=== PATIENT | male | born 1955 ===

== ENCOUNTER 2023-04-15 16:16 | Inpatient (IN) | payer OTHER, SELFPAY ==
[2023-04-15 16:40] VITALS: BP 128/96; PULSE 102; RESP 16; TEMP 37.1; O2SAT 95
[2023-04-15 17:08] VITALS: BP 153/67; RESP 16
[2023-04-15 18:00] VITALS: RESP 16
--- NOTE | 2023-04-15 19:02 | PC.ADMIT ---
Alin arrived to the unit at 1630, he was on a four point restraint on the stretcher, per ambulance personnel Alin attempted to jump off the ambulance when ambulance was on the highway. Alin was not responding to conventional underwriter when questions were being asked. Alin appears internally preoccupied self dialoguing, started laughing inappropriately, smiling, nonsensical responses, food offered and accepted, appeared calmer. Alin is on a 12b, per assessment Alin has a history with the [facility] and was recently discharged from their psych unit, he was found walking on a corn field covered in his sown urine appeared disorganized, he reported that he had walked from [place] to [place] and reported SI.
--- NOTE | 2023-04-15 20:04 | HO.PM.IMCN ---
History of Present Illness Data of Consult Service Date: 04/15/23 Requesting physician: James Hughes Primary Care Provider: Unknown Physician HPI Reason for consult: medical H&P 67 year old male with history of schizoaffective disorder, heart murmur, and chronic venous stasis BLE admitted to psychiatry with consult placed for medical H&P. The patient denies any other chronic medical conditions but unclear how well his medical follow up has been. He does follow with the DC in [place]. He has no complaints at this time. No illicit drug use, cigarette smoking, or alcohol use. Review of Systems Review of Systems: General: No fevers, malaise, unintentional weight loss HEENT: No blurred vision, diplopia. No sore throat, nasal congestion, rhinorrhea, sinus pain, ear pain Cardiovascular: No chest pain, palpitations, or leg edema Respiratory: No shortness of breath, wheezing, cough GI: No abdominal pain, nausea, vomiting, diarrhea, constipation, melena, hematochezia : No dysuria, hematuria, increased urinary frequency, decreased urinary output MSK: No myalgia, back pain Neuro: No headaches, weakness, paresthesias Skin: No rashes or lesions PMFSH Medical History Chronic venous stasis dermatitis of both lower extremities Kidney stone Systolic ejection murmur Social History Household Members: Unknown / Unable to assess and Other Household Members Other:: Per assessment patient is homeless. Housing: Homeless Do you presently have visiting nurse or other home services: Yes (DC in [place]) Unable to assess alcohol history related to: Unknown Patient Tobacco Use Status: Tobacco use Unknown Use of substances other than those prescribed or required for medical reasons: Unknown Substance Use Type: Unknown Currently Displaying Signs/Symptoms of Drug Intoxication Withdrawal: No Any prior treatment program specific to substance use: No Advance Directives: No Advance Directives Information Provided: Yes Do you have thoughts of harming others: None Do you have a plan to hurt others: No Plan Recently lost weight without trying: Unsure Meds Allergies Allergy/AdvReac Type Severity Reaction Status Date / Time No Known Allergies Allergy Verified 04/15/23 16:26 Active Medications: Current Medications Acetaminophen (Acetaminophen 325 Mg Tablet) 650 mg PO Q6H PRN PRN Reason: Headache/Pain Mild Scale (1-3) Al Hydroxide/Mg Hydroxide (Magnesium Hydrox/Alum Hydrox 30 Ml Oral.Susp) 30 ml PO Q6H PRN PRN Reason: Heartburn/Nausea Divalproex Sodium (Divalproex Sodium Er 500 Mg Tab.Er.24h) 500 mg PO BEDTIME JAIME Haloperidol (Haloperidol 0.5 Mg Tablet) 2.5 mg PO BID JAIME Hydroxyzine HCl (Hydroxyzine Hcl 25 Mg Tablet) 25 mg PO Q6H PRN PRN Reason: Anxiety Magnesium Hydroxide (Milk Of Magnesia 30 Ml Oral.Susp) 30 ml PO DAILY PRN PRN Reason: Constipation Trazodone HCl (Trazodone Hcl 50 Mg Tablet) 50 mg PO BEDTIME MRX1 PRN PRN Reason: Insomnia Physical Exam Vital Signs and Narrative: Vital Signs: Last Vital Signs Temp 98.7 F 04/15/23 16:40 Pulse 102 H 04/15/23 16:40 Resp 16 04/15/23 17:08 BP 153/67 H 04/15/23 17:08 Pulse Ox 95 04/15/23 16:40 O2 Del Method Room Air 04/15/23 16:40 Constitutional - Awake and Alert, No apparent distress Eyes - PERRLA, EOMI Cardiovascular - S1S2, RRR, IV/ systolic ejection murmur, No edema Respiratory - Normal lung expansion, Normal respiratory effort, No respiratory distress, CTA bilaterally Gastrointestinal - NT / ND; +BS; No rebound or guarding Extremities - no calf tenderness bilaterally, no swelling Musculoskeletal - Normal inspection, normal ROM Skin - Warm/Dry. Chronic venous stasis changes BLE Neurological - Alert & oriented x3, CN II-XII in tact, 5/5 strength BUE and BLE Psychological - Appropriate affect Assessment and Plan (1) Routine medical exam: Status: Acute Plan 67 year old male with history of schizoaffective disorder, heart murmur, and chronic venous stasis BLE admitted to psychiatry with consult placed for medical H&P. #Schizoaffective disorder -plan per psychiatry #Heart murmur -systolic ejection murmur, probably aortic stenosis -states diagnosed 4 years ago -asymptomatic, outpt follow up Thank you for allowing me to participate in this consult. Signing off at this time. Please do not hesitate to call for further questions. Time Spent With Patient Time: Total time managing care of this patient today ____ minutes.
[2023-04-15] MEDS: HaloperidoL 0.5 MG TABLET 2.5 MG PO (20:21)
[2023-04-15 21:10] VITALS: BP 146/90; PULSE 78; RESP 20; TEMP 36.9; O2SAT 96
[2023-04-16] MEDS: traZODone HCL 50 MG TABLET PO ×2 (00:08→23:51)
[2023-04-16 06:00] VITALS: BP 177/97; PULSE 77; RESP 18; TEMP 36.3; O2SAT 96
[2023-04-16] MEDS: HaloperidoL 0.5 MG TABLET 2.5 MG PO ×2 (08:20→20:19)
[2023-04-16 08:26] LABS: Alanine Aminotransferase 12 U/L (0-40); Albumin Level 4.1 g/dL (3.5-5.0); Alkaline Phosphatase 71 U/L (39-117); Anion Gap 10 (12-20); Aspartate Amino Transferase 14 U/L (5-37); Bilirubin Total 0.6 mg/dL (0.0-1.0); Blood Urea Nitrogen 23 mg/dL (9-16); Calcium 9.6 mg/dL (8.4-10.2); Carbon Dioxide 28 mmol/L (22-29); Chloride 106 mmol/L (96-108); Cholesterol 172 mg/dL; Estimated Glomerular Filt Rate > 60; Glucose Fasting 95 mg/dL (60-99); HDL Cholesterol 68 mg/dL; LDL Cholesterol Calculated 91 mg/dl; Potassium 4.5 mmol/L (3.3-5.1); Sodium 139 mmol/L (135-145); Triglycerides 68 mg/dL
--- NOTE | 2023-04-16 13:13 | P.HPPS_ITS ---
HPI Date of Service: 04/16/23 Chief Complaint: Schizoaffective disorder Sources of Information: patient interviewed, chart reviewed and crisis/core team assessment reviewed HPI Subjective Notes: [place]azu[place] Warning and Section 12B Narrative: The patient is a 67-year-old male, better and who was recently discharged from the [facility] with a prior history of schizoaffective disorder bipolar type. The patient was brought to the emergency room another hospital since he was found in a corn field incoherent stating that he wanted to kill himself disheveled covered in urine refusing to answer any questions. He was rushed to the emergency room, medically treated but he got agitated and become nonsensical in needed to be chemically restrain with droperidol and Versed. According to the crisis assessment, the patient was known by the crisis team for prior assessment since he was found in the streets with a similar presentation, he is homeless, he used to live in [place] and came to [place] stating that he likes [place] people . He was discharged from [facility] since he refused all treatment and services from the [place] and wanted to go back to [place]. Apparently, he lost his bus ticket and he wanted to walk from [place] to [place]. Later, he was found by emergency services he was extremely disorganized dish eveled covered on urine. On assessment, the patient refused to interact with this prescriber, he was laughing nonsensical responding to internal stimuli and. He had been incontinent and refusing to wear briefs and he had been on one-to-one observation for safety. He is on a Section 12 be, unable to sign himself in the hospital. Past Psychiatric History: According to the crisis assessment, the patient carries a diagnosis of schizoaffective disorder bipolar type, treated on the [facility] and [place]. Medical Evaluation Reviewed: Yes [facility] Medical History Chronic venous stasis dermatitis of both lower extremities Kidney stone Systolic ejection murmur Family History: Unknown Social History: Homeless, we do not have collateral information at this moment Substance History: According to the crisis assessment he does not have history of substance abuse Trauma History: Unknown Diagnostics Vital Signs (24Hr): Vital Signs - 24 hr 04/15/23 16:40 04/15/23 17:08 04/15/23 18:00 Temperature 98.7 F Pulse Rate 102 H Respiratory Rate 16 16 16 Blood Pressure 128/96 H 153/67 H Pulse Oximetry 95 Oxygen Delivery Method Room Air 04/15/23 21:10 04/16/23 06:00 Temperature 98.4 F 97.4 F Pulse Rate 78 77 Respiratory Rate 20 18 Blood Pressure 146/90 H 177/97 H Pulse Oximetry 96 96 Oxygen Delivery Method Room Air Room Air Labs 04/16/23 07:53 Labs: Laboratory Results - last 48 hr 04/16/23 07:53 Sodium 139 Potassium 4.5 Chloride 106 Carbon Dioxide 28 Anion Gap 10 L BUN 23 H Creatinine 0.75 Estim Creat Clear Calc TNP Estimated GFR > 60 Fasting Glucose 95 Calcium 9.6 Total Bilirubin 0.6 AST 14 ALT 12 Alkaline Phosphatase 71 Total Protein 7.0 Albumin 4.1 Triglycerides 68 Cholesterol 172 LDL Cholesterol, Calc 91 HDL Cholesterol 68 Meds/Allergies Allergies Allergies Allergy/AdvReac Type Severity Reaction Status Date / Time No Known Allergies Allergy Verified 04/15/23 16:26 Mental Status Exam Mental Status Exam Patient Appearance: Disheveled, Inappropriate and Unkempt Patient Orientation: Person Level of Consciousness: Restless, Alert and Inappropriate Patient Behavior: Guarded and Posturing Mood Description: Labile Affect Description: Labile Patient Cognition Impaired: Yes Ability to Follow Directions: Poor Speech Pattern: Impoverished and Monotone Hallucinations: Auditory Delusions: Paranoid Ideation, Thought Insert/Delete and Ideas of Reference Perceptual Disturbances: Hallucinations Thought Process: Incoherent, Distracted and Slowed Thinking Thought Content: positive for Poverty of Content, positive for Thought Blocking and positive for Disorganized Judgement: Poor Assessment & Plan Assessment & Plan (1) Schizoaffective disorder: Status: Acute Code(s): F25.9 - Schizoaffective disorder, unspecified Plan The patient is an elderly male with a past history of schizoaffective disorder or with a prior history of being admitted at the [place] [facility] but discharge since he refused prior services, found in a [facility] cover the urine grossly disorganized stating that he wanted to go walking from here to [place] where he is from. He was found grossly disorganized, covered in urine, unable t o take care of himself. He was also previously agitated and needed to be chemically restrained in the emergency room with a different hospital. Plan 1. Gather collateral information. [facility] and get more information about him. 2. Continue Haldol as prescribed. 3. Continue Depakote. 4. Continue medical workout. 5. Continue one-to-one for safety since the patient is grossly disorganized Patient educated on: diagnosis and therapeutic strategies Informed Consent: does not understand Reason for continued inpatient stay Substantial Risk for: harm to self, harm to others, inability to function, rapid decompensation and med/psych decompensation Statement Statement: I have reviewed the history and physical and performed a pertinent examination on my patient. No changes have occurred unless specified. If the History and Physical was not performed prior to admission, the Hospitalist's service will be consulted for completing the admission physical. Time Spent With Patient Time: Total time managing care of this patient today __45__ minutes.
[2023-04-16 19:30] VITALS: BP 154/74; PULSE 86; RESP 18; TEMP 36.3; O2SAT 98
[2023-04-16] MEDS: hydrOXYzine HCL 25 MG TABLET PO (23:51)
[2023-04-17] MEDS: traZODone HCL 50 MG TABLET PO ×2 (01:36→20:10)
[2023-04-17 08:12] VITALS: BP 157/77; PULSE 84; RESP 20; TEMP 36.6; O2SAT 95
[2023-04-17] MEDS: HaloperidoL 0.5 MG TABLET 2.5 MG PO (08:23)
[2023-04-17] MEDS: hydrOXYzine HCL 25 MG TABLET PO ×2 (08:23→20:10)
[2023-04-17 14:59] VITALS: BMI 22.2
[2023-04-17] MEDS: HaloperidoL 5 MG TABLET 2.5 MG PO (20:11)
[2023-04-17] MEDS: HaloperidoL 5 MG TABLET PO (20:39)
--- NOTE | 2023-04-17 23:59 | HO.PSYCHPN ---
Subjective Subjective Date of Service: 04/17/23 Reason For Visit: Schizoaffective disorder Subjective Notes: Section 12B Interim History: Patient took some low-dose Haldol refusing Depakote. Patient was less agitated generally had been intrusive labile day and night previously intrusive with his roommate. Patient mostly isolative to his room pressured speech diagnosis of attention she will but relating essentially that he has a history of living on the streets he related that he had been diagnosed with schizophrenia and manic depression in the past Medication Compliance: Intermittent Mental Status Exam Mental Status Exam Patient Appearance: Disheveled, Inappropriate and Unkempt Patient Orientation: Person Level of Consciousness: Restless, Alert and Inappropriate Patient Behavior: Guarded and Posturing Mood Description: Labile Affect Description: Labile Patient Cognition Impaired: Yes Ability to Follow Directions: Poor Speech Pattern: Perseverating, Impoverished, Rambling and Pressured Hallucinations: Auditory Delusions: Paranoid Ideation, Thought Insert/Delete and Ideas of Reference Perceptual Disturbances: Hallucinations Thought Process: Incoherent, Distracted and Slowed Thinking Thought Content: positive for Poverty of Content, positive for Thought Blocking and positive for Disorganized Judgement: Poor Diagnostics Vital Signs (24Hr): Vital Signs - 24 hr 04/17/23 08:12 Temperature 97.8 F Pulse Rate 84 Respiratory Rate 20 Blood Pressure 157/77 H Pulse Oximetry 95 Oxygen Delivery Method Room Air BMI result Body Mass Index 22.2 Labs 04/16/23 07:53 Labs: Laboratory Results - last 48 hr 04/16/23 07:53 Sodium 139 Potassium 4.5 Chloride 106 Carbon Dioxide 28 Anion Gap 10 L BUN 23 H Creatinine 0.75 Estim Creat Clear Calc TNP Estimated GFR > 60 Fasting Glucose 95 Calcium 9.6 Total Bilirubin 0.6 AST 14 ALT 12 Alkaline Phosphatase 71 Total Protein 7.0 Albumin 4.1 Triglycerides 68 Cholesterol 172 LDL Cholesterol, Calc 91 HDL Cholesterol 68 Medications Medications Current Medications Acetaminophen (Acetaminophen 325 Mg Tablet) 650 mg PO Q6H PRN PRN Reason: Headache/Pain Mild Scale (1-3) Al Hydroxide/Mg Hydroxide (Magnesium Hydrox/Alum Hydrox 30 Ml Oral.Susp) 30 ml PO Q6H PRN PRN Reason: Heartburn/Nausea Divalproex Sodium (Divalproex Sodium Er 500 Mg Tab.Er.24h) 500 mg PO BEDTIME JAIME Last Admin: 06/09/23 20:17 Dose: Not Given Haloperidol (Haloperidol 5 Mg Tablet) 2.5 mg PO BID JAIME Last Admin: 04/17/23 20:11 Dose: 2.5 mg Hydroxyzine HCl (Hydroxyzine Hcl 25 Mg Tablet) 25 mg PO Q6H PRN PRN Reason: Anxiety Last Admin: 04/17/23 20:10 Dose: 25 mg Magnesium Hydroxide (Milk Of Magnesia 30 Ml Oral.Susp) 30 ml PO DAILY PRN PRN Reason: Constipation Trazodone HCl (Trazodone Hcl 50 Mg Tablet) 50 mg PO BEDTIME MRX1 PRN PRN Reason: Insomnia Last Admin: 04/17/23 20:10 Dose: 50 mg Allergies Allergies Allergy/AdvReac Type Severity Reaction Status Date / Time No Known Allergies Allergy Verified 04/15/23 16:26 Assessment & Plan Assessment & Plan (1) Schizoaffective disorder: Status: Acute Code(s): F25.9 - Schizoaffective disorder, unspecified Plan The patient is an elderly male with a past history of schizoaffective disorder or with a prior history of being admitted at the [place] [facility] but discharge since he refused prior services, found in a [facility] cover the urine grossly disorganized stating that he wanted to go walking from here to [place] where he is from. He was found grossly disorganized, covered in urine, unable to take care of himself. He was also previously agitated and needed to be chemically restrained in the emergency room with a different hospital. Plan 1. Gather collateral information. We will try to contact the [place] [facility] and get more information about him. 2. Continue Haldol as prescribed. 3. Continue Depakote. 4. Continue medical workout. 5. Continue one-to-one for safety since the patient is grossly disorganized 04/17/23 Cont haldol evaluate 12 b and need for tx order potential guardianship vs d/c outreach services . Informed Consent: further education needed Reason for continued inpatient stay Substantial Risk for: inability to function Time Spent With Patient Time: Total time managing care of this patient today ____ minutes.
[2023-04-18 09:21] VITALS: BP 160/105; PULSE 83; RESP 18; TEMP 37.1; O2SAT 96
[2023-04-18] MEDS: LORazepam 1 MG TABLET PO ×2 (09:50→21:50)
[2023-04-18] MEDS: HaloperidoL 1 MG TABLET 2 MG PO (09:50)
[2023-04-18] MEDS: Divalproex Sodium Sprinkles 125 MG CAP.DR.SPR 250 MG PO ×3 (09:50→18:32)
--- NOTE | 2023-04-18 17:19 | P.PNPSI_ITS ---
Subjective Subjective Date of Service: 04/18/23 Reason For Visit: Schizoaffective disorder Subjective Notes: Section 12B Interim History: Pt reports he worked for [employer]. He is disheveled, speech is disorganized and difficult to follow. He asks this mortgage loan underwriter if I am Lao or not. Pt reports he has been on haldol and agrees to take it. He refused depakote stating pills are too big- switched to sprinkles. Pt denies SI/HI. Intrusive to peers, which has aggravated others who have treatened to hurt him. He had episode of screaming in evening requiring haldol. Medication Compliance: Intermittent Side effects from medications: Yes (parkinsonism bilat arms.) Review of Systems Review of Systems General: No fevers, malaise, unintentional weight loss HEENT: No blurred vision, diplopia. No sore throat, nasal congestion, rhinorrhea, sinus pain, ear pain Cardiovascular: No chest pain, palpitations, or leg edema Respiratory: No shortness of breath, wheezing, cough GI: No abdominal pain, nausea, vomiting, diarrhea, constipation, melena, hemato chezia : No dysuria, hematuria, increased urinary frequency, decreased urinary output MSK: No myalgia, back pain Neuro: No headaches, weakness, paresthesias Skin: No rashes or lesions Yes Unobtainable due to mental status Mental Status Exam Mental Status Exam Patient Appearance: Disheveled, Inappropriate and Unkempt Patient Orientation: Person Level of Consciousness: Restless, Alert and Inappropriate Patient Behavior: Guarded and Posturing Mood Description: Labile Affect Description: Labile Patient Cognition Impaired: Yes Ability to Follow Directions: Poor Speech Pattern: Perseverating, Impoverished, Rambling and Pressured Diagnostics Vital Signs (24Hr): Vital Signs - 24 hr 04/18/23 09:21 Temperature 98.8 F Pulse Rate 83 Respiratory Rate 18 Blood Pressure 160/105 H Pulse Oximetry 96 Oxygen Delivery Method Room Air BMI result Body Mass Index 22.2 Labs 04/16/23 07:53 Medications Medications Current Medications Acetaminophen (Acetaminophen 325 Mg Tablet) 650 mg PO Q6H PRN PRN Reason: Headache/Pain Mild Scale (1-3) Al Hydroxide/Mg Hydroxide (Magnesium Hydrox/Alum Hydrox 30 Ml Oral.Susp) 30 ml PO Q6H PRN PRN Reason: Heartburn/Nausea Divalproex Sodium (Divalproex Sodium Sprinkles 125 Mg ) 250 mg PO TID JAIME Last Admin: 04/18/23 16:01 Dose: 250 mg Haloperidol (Haloperidol 5 Mg Tablet) 5 mg PO BEDTIME JAIME Haloperidol (Haloperidol 1 Mg Tablet) 2 mg PO DAILY JAIME Hydroxyzine HCl (Hydroxyzine Hcl 25 Mg Tablet) 25 mg PO Q6H PRN PRN Reason: Anxiety Last Admin: 04/17/23 20:10 Dose: 25 mg Lorazepam (Lorazepam 1 Mg Tablet) 1 mg PO Q6H PRN PRN Reason: agitation Last Admin: 04/18/23 09:50 Dose: 1 mg Magnesium Hydroxide (Milk Of Magnesia 30 Ml Oral.Susp) 30 ml PO DAILY PRN PRN Reason: Constipation Olanzapine (Olanzapine Odt 10 Mg Tab.Rapdis) 10 mg TRANSLINGU Q6H PRN PRN Reason: agitation Trazodone HCl (Trazodone Hcl 50 Mg Tablet) 50 mg PO BEDTIME MRX1 PRN PRN Reason: Insomnia Last Admin: 04/17/23 20:10 Dose: 50 mg Allergies Allergies Allergy/AdvReac Type Severity Reaction Status Date / Time No Known Allergies Allergy Verified 04/15/23 16:26 Assessment & Plan Assessment & Plan (1) Schizoaffective disorder: Status: Acute Code(s): F25.9 - Schizoaffective disorder, unspecified Plan The patient is an elderly male with a past history of schizoaffective disorder or with a prior history of being admitted at the [place] [facility] but discharge since he refused prior services, found in a [facility] cover the urine grossly disorganized stating that he wanted to go walking from here to [facility] here he is from. He was found grossly disorganized, covered in urine, unable to take care of himself. He was also previously agitated and needed to be chemically restrained in the emergency room with a different hospital. Plan 1. Gather collateral information. We will try to contact the [place] of [facility] and get more information about him. 2. Continue Haldol as prescribed. 3. Continue Depakote. 4. Continue medical workout. 5. Continue one-to-one for safety since the patient is grossly disorganized 04/17/23 Cont haldol evaluate 12 b and need for tx order potential guardianship vs d/c outreach services . 04/18 increase haldol to 2mg po daily and 5mg po qhs. increase depakote to 250mg po TID sprinkles. PRN olanzapine for agitation. cogentin 1mg po BID. Reason for continued inpatient stay Substantial Risk for: harm to others and inability to function Time Spent With Patient Time: Total time managing care of this patient today ____ minutes.
[2023-04-18] MEDS: HaloperidoL 5 MG TABLET PO (18:33)
[2023-04-18] MEDS: hydrOXYzine HCL 25 MG TABLET PO (21:50)
[2023-04-18] MEDS: traZODone HCL 50 MG TABLET PO (23:14)
[2023-04-18] MEDS: OLANZapine ODT 10 MG TAB.RAPDIS TRANSLINGU (23:14)
[2023-04-19 08:31] VITALS: BP 146/78; PULSE 82; RESP 18; TEMP 36.2; O2SAT 99
[2023-04-19] MEDS: HaloperidoL 1 MG TABLET 2 MG PO (09:11)
[2023-04-19] MEDS: Divalproex Sodium Sprinkles 125 MG CAP.DR.SPR 250 MG PO ×3 (09:11→21:10)
[2023-04-19] MEDS: Benztropine Mesylate 1 MG TABLET PO ×2 (09:11→21:10)
[2023-04-19 18:00] VITALS: BP 131/64; PULSE 77; RESP 16; TEMP 36.5; O2SAT 97
--- NOTE | 2023-04-19 18:20 | P.PNPSI_ITS ---
Subjective Subjective Date of Service: 04/19/23 Reason For Visit: Schizoaffective disorder Subjective Notes: Section 12B Interim History: Pt has taken medications as prescribed and has agreed to PRN when increasingly more agitated. Pt talks about war, his political involvement, speech is disorganized and difficult to follow. Pt asked to leave breakfast tray he was holding and he just let it drop on the floor. Laughing to himself, self dialoguing, intrusive to peers. Pt insists peer is his mother, asking such pt if she remembers him her son Peer explained she is not his mother to what pt responded that peer did not remember him due to her dementia. Review of Systems Review of Systems General: No fevers, malaise, unintentional weight loss HEENT: No blurred vision, diplopia. No sore throat, nasal congestion, rhinorrhea, sinus pain, ear pain Cardiovascular: No chest pain, palpitations, or leg edema Respiratory: No shortness of breath, wheezing, cough GI: No abdominal pain, nausea, vomiting, diarrhea, constipation, melena, hematochezia : No dysuria, hematuria, increased urinary frequency, decreased urinary output MSK: No myalgia, back pain Neuro: No headaches, weakness, paresthesias Skin: No rashes or lesions Yes Unobtainable due to mental status Mental Status Exam Mental Status Exam Patient Appearance: Disheveled, Inappropriate and Unkempt Patient Orientation: Person Level of Consciousness: Restless, Alert and Inappropriate Patient Behavior: Guarded and Posturing Mood Description: Labile Affect Description: Labile Patient Cognition Impaired: Yes Ability to Follow Directions: Poor Speech Pattern: Perseverating, Impoverished, Rambling and Pressured Diagnostics Vital Signs (24Hr): Vital Signs - 24 hr 04/19/23 08:31 Temperature 97.2 F Pulse Rate 82 Respiratory Rate 18 Blood Pressure 146/78 H Pulse Oximetry 99 Oxygen Delivery Method Room Air BMI result Body Mass Index 22.2 Labs 04/16/23 07:53 Medications Medications Current Medications Acetaminophen (Acetaminophen 325 Mg Tablet) 650 mg PO Q6H PRN PRN Reason: Headache/Pain Mild Scale (1-3) Al Hydroxide/Mg Hydroxide (Magnesium Hydrox/Alum Hydrox 30 Ml Oral.Susp) 30 ml PO Q6H PRN PRN Reason: Heartburn/Nausea Benztropine Mesylate (Benztropine Mesylate 1 Mg Tablet) 1 mg PO BID [facility] Last Admin: 04/19/23 09:11 Dose: 1 mg Divalproex Sodium (Divalproex Sodium Sprinkles 125 Mg ) 250 mg PO TID [facility] Last Admin: 04/19/23 14:20 Dose: 250 mg Haloperidol (Haloperidol 5 Mg Tablet) 5 mg PO BEDTIME [facility] Last Admin: 04/18/23 18:33 Dose: 5 mg Haloperidol (Haloperidol 1 Mg Tablet) 2 mg PO DAILY [facility] Last Admin: 04/19/23 09:11 Dose: 2 mg Hydroxyzine HCl (Hydroxyzine Hcl 25 Mg Tablet) 25 mg PO Q6H PRN PRN Reason: Anxiety Last Admin: 04/18/23 21:50 Dose: 25 mg Lorazepam (Lorazepam 1 Mg Tablet) 1 mg PO Q6H PRN PRN Reason: agitation Last Admin: 04/18/23 21:50 Dose: 1 mg Magnesium Hydroxide (Milk Of Magnesia 30 Ml Oral.Susp) 30 ml PO DAILY PRN PRN Reason: Constipation Olanzapine (Olanzapine Odt 10 Mg Tab.Rapdis) 10 mg TRANSLINGU Q6H PRN PRN Reason: agitation Last Admin: 04/18/23 23:14 Dose: 10 mg Trazodone HCl (Trazodone Hcl 50 Mg Tablet) 50 mg PO BEDTIME PRN PRN Reason: Insomnia Allergies Allergies Allergy/AdvReac Type Severity Reaction Status Date / Time No Known Allergies Allergy Verified 04/15/23 16:26 Assessment & Plan Assessment & Plan (1) Schizoaffective disorder: Status: Acute Code(s): F25.9 - Schizoaffective disorder, unspecified Plan The patient is an elderly male with a past history of schizoaffective disorder or with a prior history of being admitted at the [facility] but d ischarge since he refused prior services, found in a [facility] cover the urine grossly disorganized stating that he wanted to go walking from here to [place] where he is from. He was found grossly disorganized, covered in urine, unable to take care of himself. He was also previously agitated and needed to be chemically restrained in the emergency room with a different hospital. Plan 1. Gather collateral information. We will try to contact the [facility] of [facility] and get more information about him. 2. Continue Haldol as prescribed. 3. Continue Depakote. 4. Continue medical workout. 5. Continue one-to-one for safety since the patient is grossly disorganized 04/17/23 Cont haldol evaluate 12 b and need for tx order potential guardianship vs d/c outreach services . 04/18 increase haldol to 2mg po daily and 5mg po qhs. Increase depakote 250mg po TID. cogentin 1mg po bid olanzapine 10mg po q6h prn agitation 04/19 continue tx. Reason for continued inpatient stay Substantial Risk for: inability to function Time Spent With Patient Time: Total time managing care of this patient today ____ minutes.
[2023-04-19] MEDS: HaloperidoL 5 MG TABLET PO (21:10)
[2023-04-19] MEDS: hydrOXYzine HCL 25 MG TABLET PO (21:10)
[2023-04-19] MEDS: LORazepam 1 MG TABLET PO (23:53)
[2023-04-19] MEDS: traZODone HCL 50 MG TABLET PO (23:53)
[2023-04-19] MEDS: Acetaminophen 325 MG TABLET 650 MG PO (23:53)
[2023-04-20 07:50] VITALS: BP 153/75; PULSE 73; RESP 18; TEMP 35.9; O2SAT 97
[2023-04-20] MEDS: HaloperidoL 1 MG TABLET 2 MG PO (08:09)
[2023-04-20] MEDS: Benztropine Mesylate 1 MG TABLET PO ×2 (08:09→20:08)
[2023-04-20] MEDS: Divalproex Sodium Sprinkles 125 MG CAP.DR.SPR 250 MG PO ×3 (08:09→20:10)
[2023-04-20] MEDS: LORazepam 1 MG TABLET PO ×2 (08:10→20:09)
--- NOTE | 2023-04-20 10:38 | HO.PSYCHPN ---
Subjective Subjective Date of Service: 04/20/23 Reason For Visit: Schizoaffective disorder Subjective Notes: [place] Warning, Conditional Voluntary and 3 Day Interim History: The nursing staff staff reported the patient has been perseverative, inappropriate with female staff at times. The social service manager reported that he wrist fused to sinus CV or any documents. On interview the patient reported that he is doing much better that he is more alert and awake and he wants to go back to [place]. He denies side effects with the current medications he denies hallucinations or delusions. We discussed at length treatment options and he agreed to sinus CV and a 3 day notice since he wants to be discharged as soon as possible Mental Status Exam Mental Status Exam Patient Appearance: Appropriate Patient Orientation: Person and Situation Level of Consciousness: Awake and Appropriate Patient Behavior: Guarded and Passive Mood Description: Withdrawn Affect Description: Constricted Patient Cognition Impaired: Yes Ability to Follow Directions: Good Speech Pattern: Clear and Appropriate Hallucinations: None Delusions: Paranoid Ideation Thought Process: Distracted and Slowed Thinking Thought Content: positive for [place] and positive for Circumstantial Judgement: Fair Diagnostics Vital Signs (24Hr): Vital Signs - 24 hr 04/19/23 18:00 04/20/23 07:50 Temperature 97.7 F 96.7 F L Pulse Rate 77 73 Respiratory Rate 16 18 Blood Pressure 131/64 153/75 H Pulse Oximetry 97 97 Oxygen Delivery Method Room Air Room Air BMI result Body Mass Index 22.2 Labs 04/16/23 07:53 Medications Medications Current Medications Acetaminophen (Acetaminophen 325 Mg Tablet) 650 mg PO Q6H PRN PRN Reason: Headache/Pain Mild Scale (1-3) Last Admin: 04/19/23 23:53 Dose: 650 mg Al Hydroxide/Mg Hydroxide (Magnesium Hydrox/Alum Hydrox 30 Ml Oral.Susp) 30 ml PO Q6H PRN PRN Reason: Heartburn/Nausea Benztropine Mesylate (Benztropine Mesylate 1 Mg Tablet) 1 mg PO BID [facility] Last Admin: 04/20/23 08:09 Dose: 1 mg Divalproex Sodium (Divalproex Sodium Sprinkles 125 Mg ) 250 mg PO TID [facility] Last Admin: 04/20/23 08:09 Dose: 250 mg Haloperidol (Haloperidol 5 Mg Tablet) 5 mg PO BEDTIME [facility] Last Admin: 04/19/23 21:10 Dose: 5 mg Haloperidol (Haloperidol 1 Mg Tablet) 2 mg PO DAILY [facility] Last Admin: 04/20/23 08:09 Dose: 2 mg Hydroxyzine HCl (Hydroxyzine Hcl 25 Mg Tablet) 25 mg PO Q6H PRN PRN Reason: Anxiety Last Admin: 04/19/23 21:10 Dose: 25 mg Lorazepam (Lorazepam 1 Mg Tablet) 1 mg PO Q6H PRN PRN Reason: agitation Last Admin: 04/20/23 08:10 Dose: 1 mg Magnesium Hydroxide (Milk Of Magnesia 30 Ml Oral.Susp) 30 ml PO DAILY PRN PRN Reason: Constipation Olanzapine (Olanzapine Odt 10 Mg Tab.Rapdis) 10 mg TRANSLINGU Q6H PRN PRN Reason: agitation Last Admin: 04/18/23 23:14 Dose: 10 mg Trazodone HCl (Trazodone Hcl 50 Mg Tablet) 50 mg PO BEDTIME PRN PRN Reason: Insomnia Last Admin: 04/19/23 23:53 Dose: 50 mg Allergies Allergies Allergy/AdvReac Type Severity Reaction Status Date / Time No Known Allergies Allergy Verified 04/15/23 16:26 Assessment & Plan Assessment & Plan (1) Schizoaffective disorder: Status: Acute Code(s): F25.9 - Schizoaffective disorder, unspecified Plan The patient is an elderly male with a past history of schizoaffective disorder or with a prior history of being admitted at the [facility] but discharge since he refused prior services, found in a [facility] cover the urine grossly disorganized stating that he wanted to go walking from here to [place] where he is from. He was found grossly disorganized, covered in urine, unable to take care of himself. He was also previously agitated and needed to be chemically restrained in the emergency room with a different hospital. Plan 1. Gather collateral information. We will try to contact the [facility] and get more information about him. 2. Continue Haldol as prescribed a 2 mg p.o. q.a.m. and 5 mg p.o. q.h.s. 3. Continue Depakote. 4. Continue medical workout. 5. Continue one-to-one for safety since the patient is grossly disorganized 6. We will discuss possible discharge planning Reason for continued inpatient stay Substantial Risk for: inability to function, rapid decompensation and med/psych decompensation Time Spent With Patient Time: Total time managing care of this patient today __20__ minutes.
[2023-04-20 18:00] VITALS: BP 138/63; PULSE 72; RESP 18; TEMP 36.8; O2SAT 97
[2023-04-20] MEDS: HaloperidoL 5 MG TABLET PO (20:10)
[2023-04-20] MEDS: hydrOXYzine HCL 25 MG TABLET PO (20:11)
[2023-04-21] MEDS: traZODone HCL 50 MG TABLET PO (00:19)
[2023-04-21] MEDS: Acetaminophen 325 MG TABLET 650 MG PO (01:56)
[2023-04-21] MEDS: OLANZapine ODT 10 MG TAB.RAPDIS TRANSLINGU (01:58)
[2023-04-21 08:17] VITALS: BP 149/70; PULSE 58; RESP 16; TEMP 36.3; O2SAT 98
[2023-04-21] MEDS: Benztropine Mesylate 1 MG TABLET PO ×2 (08:36→20:24)
[2023-04-21] MEDS: HaloperidoL 1 MG TABLET 2 MG PO (08:36)
[2023-04-21] MEDS: Divalproex Sodium Sprinkles 125 MG CAP.DR.SPR 250 MG PO ×3 (08:36→20:24)
--- NOTE | 2023-04-21 10:25 | HO.PSYCHPN ---
Subjective Subjective Date of Service: 04/21/23 Reason For Visit: Schizoaffective disorder Subjective Notes: Conditional Voluntary and 3 Day Interim History: The nursing staff reported the patient had been pacing in the hallway, his inappropriate at times. He slept on the floor. The staff has noticed that he does not have any outburst torn and there is no evidence of aggressive behavior. The social work instructor has contact him and the patient so far has refused all services. He stated that he can fence by himself in the community. On interview, he reports that he is doing well, no side effects with medications. Mental Status Exam Mental Status Exam Patient Appearance: Well Grooomed and Appropriate Patient Orientation: Person and Situation Level of Consciousness: Awake and Appropriate Patient Behavior: Guarded and Passive Mood Description: Calm Affect Description: Constricted Patient Cognition Impaired: Yes Ability to Follow Directions: Good Speech Pattern: Clear Hallucinations: None Delusions: Ideas of Reference Thought Process: Distracted and Slowed Thinking Thought Content: positive for [place] and positive for [place] of Content Judgement: Fair Diagnostics Vital Signs (24Hr): Vital Signs - 24 hr 04/20/23 18:00 04/21/23 08:17 Temperature 98.3 F 97.4 F Pulse Rate 72 58 Respiratory Rate 18 16 Blood Pressure 138/63 149/70 H Pulse Oximetry 97 98 Oxygen Delivery Method Room Air Room Air BMI result Body Mass Index 22.2 Labs 04/16/23 07:53 Medications Medications Current Medications Acetaminophen (Acetaminophen 325 Mg Tablet) 650 mg PO Q6H PRN PRN Reason: Headache/Pain Mild Scale (1-3) Last Admin: 04/21/23 01:56 Dose: 650 mg Al Hydroxide/Mg Hydroxide (Magnesium Hydrox/Alum Hydrox 30 Ml Oral.Susp) 30 ml PO Q6H PRN PRN Reason: Heartburn/Nausea Benztropine Mesylate (Benztropine Mesylate 1 Mg Tablet) 1 mg PO BID [facility] Last Admin: 04/21/23 08:36 Dose: 1 mg Divalproex Sodium (Divalproex Sodium Sprinkles 125 Mg ) 250 mg PO TID [facility] Last Admin: 04/21/23 08:36 Dose: 250 mg Haloperidol (Haloperidol 5 Mg Tablet) 5 mg PO BEDTIME [facility] Last Admin: 04/20/23 20:10 Dose: 5 mg Haloperidol (Haloperidol 1 Mg Tablet) 2 mg PO DAILY [facility] Last Admin: 04/21/23 08:36 Dose: 2 mg Hydroxyzine HCl (Hydroxyzine Hcl 25 Mg Tablet) 25 mg PO Q6H PRN PRN Reason: Anxiety Last Admin: 04/20/23 20:11 Dose: 25 mg Lorazepam (Lorazepam 1 Mg Tablet) 1 mg PO Q6H PRN PRN Reason: agitation Last Admin: 04/20/23 20:09 Dose: 1 mg Magnesium Hydroxide (Milk Of Magnesia 30 Ml Oral.Susp) 30 ml PO DAILY PRN PRN Reason: Constipation Olanzapine (Olanzapine Odt 10 Mg Tab.Rapdis) 10 mg TRANSLINGU Q6H PRN PRN Reason: agitation Last Admin: 04/21/23 01:58 Dose: 10 mg Trazodone HCl (Trazodone Hcl 50 Mg Tablet) 50 mg PO BEDTIME PRN PRN Reason: Insomnia Last Admin: 04/21/23 00:19 Dose: 50 mg Allergies Allergies Allergy/AdvReac Type Severity Reaction Status Date / Time No Known Allergies Allergy Verified 04/15/23 16:26 Assessment & Plan Assessment & Plan (1) Schizoaffective disorder: Status: Acute Code(s): F25.9 - Schizoaffective disorder, unspecified Plan The patient is an elderly male with a past history of schizoaffective disorder or with a prior history of being admitted at the [facility] but discharge since he refused prior services, found in a [facility] cover the urine grossly disorganized stating that he wanted to go walking from here to [place] where he is from. He was found grossly disorganized, covered in urine, unable to take care of himself. He was also previously agitated and needed to be chemically restrained in the emergency room with a different hospital. Plan 1. Gather collateral information. We will try to contact the [place] [facility] [place] and get more information about him. 2. Continue Haldol as prescribed a 2 mg p.o. q.a.m. and 5 mg p.o. q.h.s. 3. Continue Depakote. 4. Continue medical workout. 5. Continue one-to-one for safety since the patient is grossly disorganized, later on it was discontinue. Currently the patient is more alert awake and goal oriented. 6. We will discuss possible discharge planning Reason for continued inpatient stay Substantial Risk for: inability to function, rapid decompensation and med/psych decompensation Time Spent With Patient Time: Total time managing care of this patient today __20__ minutes.
[2023-04-21 18:00] VITALS: BP 149/68; PULSE 76; RESP 18; TEMP 36.2; O2SAT 98
[2023-04-21] MEDS: HaloperidoL 5 MG TABLET PO (20:23)
[2023-04-22 08:42] VITALS: BP 152/72; PULSE 67; RESP 16; TEMP 36.3; O2SAT 99
[2023-04-22] MEDS: Benztropine Mesylate 1 MG TABLET PO ×2 (08:44→20:26)
[2023-04-22] MEDS: Divalproex Sodium Sprinkles 125 MG CAP.DR.SPR 250 MG PO ×3 (08:44→20:26)
[2023-04-22] MEDS: HaloperidoL 1 MG TABLET 2 MG PO (08:45)
--- NOTE | 2023-04-22 10:38 | HO.PSYCHPN ---
Subjective Subjective Date of Service: 04/22/23 Reason For Visit: Schizoaffective disorder Subjective Notes: Conditional Voluntary and 3 Day Interim History: The nursing staff reported the patient had been compliant with treatment, he has been pleasant, hyperverbal and several IN on at times but easily redirectable and safe in the unit. Yesterday he took a shower but he slept on the floor. He denies pain. Yesterday the geriatric social work professor met with the patient stated that he wants to go to [place]. He gave us permission to contact [facility] and confirmed that the patient had not been a threat to himself or others and he has refused all services. On interview the patient denies new symptoms he states that he is taking medications just because he likes us and he likes the place but he wants to be discharged tomorrow. There is no evidence of safety to self or others even though that he is chronically psychotic and non compliant. Mental Status Exam Mental Status Exam Patient Appearance: Appropriate Patient Orientation: Person and Situation Level of Consciousness: Awake and Appropriate Patient Behavior: Guarded and Passive Mood Description: Calm Affect Description: Constricted Patient Cognition Impaired: Yes Ability to Follow Directions: Good Speech Pattern: Clear Hallucinations: Auditory Delusions: Paranoid Ideation Thought Process: Illogical Thought Content: positive for [place] and positive for [place] Judgement: Fair Diagnostics Vital Signs (24Hr): Vital Signs - 24 hr 04/21/23 18:00 04/22/23 08:42 Temperature 97.2 F 97.3 F Pulse Rate 76 67 Respiratory Rate 18 16 Blood Pressure 149/68 H 152/72 H Pulse Oximetry 98 99 Oxygen Delivery Method Room Air Room Air BMI result Body Mass Index 22.2 Labs 04/16/23 07:53 Medications Medications Current Medications Acetaminophen (Acetaminophen 325 Mg Tablet) 650 mg PO Q6H PRN PRN Reason: Headache/Pain Mild Scale (1-3) Last Admin: 04/21/23 01:56 Dose: 650 mg Al Hydroxide/Mg Hydroxide (Magnesium Hydrox/Alum Hydrox 30 Ml Oral.Susp) 30 ml PO Q6H PRN PRN Reason: Heartburn/Nausea Benztropine Mesylate (Benztropine Mesylate 1 Mg Tablet) 1 mg PO BID [facility] Last Admin: 04/22/23 08:44 Dose: 1 mg Divalproex Sodium (Divalproex Sodium Sprinkles 125 Mg ) 250 mg PO TID [facility] Last Admin: 04/22/23 08:44 Dose: 250 mg Haloperidol (Haloperidol 5 Mg Tablet) 5 mg PO BEDTIME [facility] Last Admin: 04/21/23 20:23 Dose: 5 mg Haloperidol (Haloperidol 1 Mg Tablet) 2 mg PO DAILY [facility] Last Admin: 04/22/23 08:45 Dose: 2 mg Hydroxyzine HCl (Hydroxyzine Hcl 25 Mg Tablet) 25 mg PO Q6H PRN PRN Reason: Anxiety Last Admin: 04/20/23 20:11 Dose: 25 mg Lorazepam (Lorazepam 1 Mg Tablet) 1 mg PO Q6H PRN PRN Reason: agitation Last Admin: 04/20/23 20:09 Dose: 1 mg Magnesium Hydroxide (Milk Of Magnesia 30 Ml Oral.Susp) 30 ml PO DAILY PRN PRN Reason: Constipation Olanzapine (Olanzapine Odt 10 Mg Tab.Rapdis) 10 mg TRANSLINGU Q6H PRN PRN Reason: agitation Last Admin: 04/21/23 01:58 Dose: 10 mg Trazodone HCl (Trazodone Hcl 50 Mg Tablet) 50 mg PO BEDTIME PRN PRN Reason: Insomnia Last Admin: 04/21/23 00:19 Dose: 50 mg Allergies Allergies Allergy/AdvReac Type Severity Reaction Status Date / Time No Known Allergies Allergy Verified 04/15/23 16:26 Assessment & Plan Assessment & Plan (1) Schizoaffective disorder: Status: Acute Code(s): F25.9 - Schizoaffective disorder, unspecified Plan The patient is an elderly male with a past history of schizoaffective disorder or with a prior history of being admitted at the [facility] but discharge since he refused prior services, found in a [facility] cover the urine grossly disorganized stating that he wanted to go walking from here to [place] where he is from. He was found grossly disorganized, covered in urine, unable to take care of himself. He was also previously agitated and needed to be chemically restrained in the emergency room with a different hospital. Plan 1. Gather collateral information. We will try to contact the [facility] and get more information about him. 2. Continue Haldol as prescribed a 2 mg p.o. q.a.m. and 5 mg p.o. q.h.s. 3. Continue Depakote. 4. Continue medical workout. 5. Continue one-to-one for safety since the patient is grossly disorganized, later on it was discontinue. Currently the patient is more alert awake and goal oriented. 6. We will discuss possible discharge planning Reason for continued inpatient stay Substantial Risk for: inability to function, rapid decompensation and med/psych decompensation Time Spent With Patient Time: Total time managing care of this patient today ___20_ minutes.
[2023-04-22 18:00] VITALS: BP 153/65; PULSE 68; RESP 18; TEMP 36.2; O2SAT 98
[2023-04-22] MEDS: HaloperidoL 5 MG TABLET PO (20:26)
[2023-04-23 08:23] VITALS: BP 164/77; PULSE 70; RESP 18; TEMP 36; O2SAT 99
[2023-04-23] MEDS: HaloperidoL 1 MG TABLET 2 MG PO (08:42)
[2023-04-23] MEDS: Divalproex Sodium Sprinkles 125 MG CAP.DR.SPR 250 MG PO (08:43)
[2023-04-23] MEDS: Benztropine Mesylate 1 MG TABLET PO (09:15)
--- NOTE | 2023-04-23 10:31 | P.DS_ITS ---
DS: Providers Provider Date of Service: 04/23/23 Date of admission: 04/15/23 16:16 Date of discharge: 04/23/23 Primary care physician: Unknown Physician Consults: 04/15/23 16:26 Consult to Hospitalist Routine Comment: Consulting Provider: Hospitalist Reason For Exam: Direct admission DS: Diagnosis Discharge Diagnosis (1) Schizoaffective disorder: Status: Acute Mental Status Exam Mental Status Exam Patient Appearance: Well Grooomed and Appropriate Patient Orientation: Person and Situation Level of Consciousness: Awake and Appropriate Patient Behavior: Guarded and Passive Mood Description: Withdrawn Affect Description: Constricted Patient Cognition Impaired: Yes Ability to Follow Directions: Good Speech Pattern: Clear Hallucinations: None Delusions: Ideas of Reference Thought Process: Distracted and Evasive Thought Content: positive for [place] Judgement: Fair DS: Summary Hospital Course Hospital Course: The patient was admitted from another emergency room since he was found in the community grossly psychotic. He was recently discharged from another facility, the [facility] in [facility]. He was chemically restrain an emergency room and transferring to this facility for psychiatric stabilization. The patient carries a diagnosis of schizophrenia and he had being treated before at the [facility]. Please see the [facility] admission note for further details. On admission, we restarted him on Haldol and Depakote as per medication reconciliation. The patient initially refused to sign any conditional voluntary or paperwork but later on his sinus CV and later on a 3 day notice since he wanted to be discharged. While he was in the unit, the patient was compliant with treatment, he was pleasant cooperative, delusional and disorganized at times but easily redirectable with no evidence of violence or safety concerns. We had a long meeting with him with the child protective services social worker and apparently the patient reported he has been chronically homeless and he likes to be in the community, he is also chronically noncompliant and he wants to go back to [facility] were he has more support. Since there were no safety concerns discharge planning was discussed. Time spent discussing smoking cessation with patient: 3 to 10 minutes Status at Discharge Functional status at discharge: independent ambulation Overall status at discharge: patient is back to baseline Time Spent with Patient Time attestation: Total time managing care of this patient today _30___ minutes. Time spent: Less than 30 minutes Discharge Plan Discharge Anticipated Discharge Date/Time: 04/23/23 11:00 Patient Disposition: Home, Self-Care Discharge Diagnosis: Schizoaffective disorder Referrals: Physician,Unknown J [Primary Care Provider] - 1 Week Discharge Medications: New haloperidol 5 mg Tablet 5 mg PO BEDTIME 30 Days Qty: 30 0RF trazodone 50 mg Tablet 50 mg PO BEDTIME PRN (Reason: Insomnia) 30 Days Qty: 30 0RF haloperidol 1 mg Tablet 2 mg PO DAILY 30 Days Qty: 60 0RF benztropine 1 mg Tablet 1 mg PO BID 30 Days Qty: 60 0RF divalproex 125 mg Capsule, Delayed Rel Sprinkle 250 mg PO TID 30 Days Qty: 180 0RF Discharge Orders: Discharge Order (Routine); Ordered 04/23/23 Ordered By: James Hughes Diet: Advance to usual diet Activity on Discharge: As tolerated Stand Alone Forms: Patient Portal Discharge page Care Plan Goals: Care plan goals achieved in this admission Health Concerns: Continue care with outpatient provider Plan of Treatment: Continue care with outpatient provider Assessment: Elderly male with schizoaffective disorder chronically homeless admitted for disorganized behavior, stabilized very fast and wants to continue treatment in [place]. No safety concerns at the moment of discharge
== END 2023-04-23 12:15 | disposition home or self-care (01) | DRG 750 ==
PROVIDERS: Admitting Provider Psychiatry & Neurology Psychiatry; Visit Provider Psychiatry & Neurology Psychiatry
DX: F25.9 Schizoaffective disorder, unspecified (principal); Z91.148 Patient's other noncompliance with medication regimen for other reason; I35.0 Nonrheumatic aortic (valve) stenosis; Z79.899 Other long term (current) drug therapy
CPT/HCPCS: 36415; 80053; 80061